=== PATIENT | male | born 1960 | race Caucasian/White ===

== ENCOUNTER → 2020-01-16 | Outpatient (CLI) | payer OTHER, SELFPAY ==
--- NOTE | 2020-01-16 12:00 | EKG12_ITS ---
Test Reason : PRE OP Blood Pressure : / mmHG Vent. Rate : 084 BPM Atrial Rate : 084 BPM P-R Int : 150 ms QRS Dur : 090 ms QT Int : 340 ms P-R-T Axes : 041 009 036 degrees QTc Int : 401 ms Normal sinus rhythm Normal ECG Confirmed by JUAN CARLOS ESPINOZA, KARELY ([id number]), movie editor JAYSHREE CHRISTIAN ([id number]) on 01/17/2020 1:09:52 PM Referred By: Markos Villasenor Confirmed By:KARELY RANGEL MD
== END | disposition home or self-care (01) ==
LOC: PSN 12:01
PROVIDERS: Referring Provider Urology; Visit Provider Urology
DX: Z01.812 Encounter for preprocedural laboratory examination (principal); I10 Essential (primary) hypertension; Z11.59 Encounter for screening for other viral diseases
CPT/HCPCS: 87635; 93005; C9803; U0003

== ENCOUNTER → 2020-01-24 | Outpatient (CLI) | payer OTHER, SELFPAY ==
--- NOTE | 2020-01-24 14:00 | RAD_ITS ---
STUDY: X-RAY - ABDOMEN/PELVIS REASON FOR EXAM: Male, 59 years old. Hx of kidney stone on the left. Recent surgery with stent placement. TECHNIQUE: Frontal view of the abdomen COMPARISON: None. FINDINGS: Normal visualized lung bases. There are multiple left renal stones with stent in place. There are pelvic calcifications, possibly phleboliths versus distal ureteral stone. There is a calcification in the right upper quadrant, unclear if this is within bowel, gallstone or renal. There is an unremarkable bowel gas pattern. There is no demonstrated free abdominal air. The visualized liver, spleen and kidneys are grossly normal in size and morphology. Normal soft tissue structures. Normal visualized osseous structures. RAD/Abdomen Single View IMPRESSION: Left ureteral stent, left renal calculi. Refer to CT for definitive characterization of urinary calculi. No acute abdominal findings. Electronically Signed: Lorrie Lew, at 13:13 EDT Tel , Service support ,
== END | disposition home or self-care (01) ==
LOC: RAD 13:46
PROVIDERS: Referring Provider Nurse Practitioner Adult Health; Visit Provider Nurse Practitioner Adult Health
DX: N20.0 Calculus of kidney (principal)
CPT/HCPCS: 74018

== ENCOUNTER 2020-03-16 11:20 | Day surgery (SDC) | payer OTHER, SELFPAY ==
--- NOTE | 2020-03-16 11:25 | RAD_ITS ---
STUDY: X-RAY - ABDOMEN/PELVIS REASON FOR EXAM: Male, 59 years old. PRE OP ESWL FOR BILATERAL KIDNEY STONES TECHNIQUE: Single AP view of the abdomen / pelvis. COMPARISON: None. FINDINGS: Comparison is made with prior study dated 01/24/2020. There is a moderate amount of colonic fecal material. Stable appearance of the bilateral intrarenal calculi. The previously seen left double-J stent catheter has been removed. Normal soft tissue structures. Normal visualized osseous structures. RAD/Abdomen Single View IMPRESSION: Stable bilateral intrarenal calculi. Electronically Signed: Arnulfo Zurita, at 12:22 EST , Service support ,
[2020-03-16 11:58] VITALS: BP 162/90; PULSE 88; RESP 16; TEMP 37.5; O2SAT 95; BMI 26.8
--- NOTE | 2020-03-16 12:03 | PCM.HP.STD ---
Problem List (1) Left renal stone Status: Acute History of Present Illness Date of Admission: 03/16/20 Chief Complaint: Multiple left kidney stones The patient is a 59 year old male with multiple left kidney stones also has some stones in the right side around the start of the left side first and will do shockwave lithotripsy and stent placement on the left side. Past Medical History Allergies No Known Allergies Allergy (Verified 03/08/20 10:17) Home Medications: Ambulatory Orders Medication Instructions Recorded Fish Oil/Dha/Epa [Fish Oil 1,200 2 ea PO BID 03/08/20 mg Fish Oil] Levothyroxine [Synthroid] 75 mcg PO DAILY 03/08/20 Losartan Potassium [Cozaar] 50 mg PO DAILY 03/08/20 Multivitamin with Minerals 1 ea PO DAILY 03/08/20 [Multiple Vitamin] Niacin 500 mg PO BID 03/08/20 Red Yeast Rice 1,200 mg PO BID 03/08/20 Surgical History: no surgical history Smoking Status: Never smoker Tobacco Use: Non-smoker Review of Systems Constitutional: Denies: Chills, Fever, Weight Change HEENT: Denies: Head Aches, Sinus Congestion, Sinus Drainage Cardiovascular: Denies: Chest Pain, Palpitations Respiratory: Denies: Cough, Shortness of breath at rest, Sputum production Gastrointestinal: Denies: Abdominal Pain, Nausea, Vomiting Genitourinary: Denies: Dysuria Musculoskeletal: Denies: Joint Pain, Joint Tenderness Skin: Denies: Rash, Wounds Neurological: Denies: Numbness, Tingling, Focal weakness Psychiatric: Denies: Anxiety, Depression, Homicidal Ideations, Suicidal Ideations Hematologic/ Lymphatic: Denies: Easy Bruising, Easy Bleeding VTE Information - Inpt Only VTE Present on Admission: No VTE Mechan Device Prophylaxis: SCD's - Physical Exam General: Alert, Oriented x3, Cooperative HEENT: Atraumatic, PERRLA, EOMI, Normocephalic Neck: Supple, No JVD, Negative Carotid Bruits Lungs: Clear to auscultation, Normal air movement Cardiovascular: Regular rate, No murmurs Abdomen: Bowel Sounds Present, Soft, Non Tender Extremities: No edema, Capillary Refill Less than 3 Seconds Skin: No rashes, No breakdown Musculoskeletal: No Tenderness to Palpation of Joints or Extremities Neurological: Cranial nerves II-XII grossly intact Psych/Mental Status: Normal Affect, Appropriate Microbiology Past 72 Hours 12/10/20 10:20 Interface Orders SARS-CoV-2 Antigen (Rapid) - Final Current Medications Cefazolin Sodium 2 gm/ Sodium (Chloride) 110 mls @ 150 mls/hr IV PREOP ONE Stop: 03/16/20 15:38 Assessment/Plan All Active Problems Left renal stone (Acute) Plan to proceed with left extracorporeal shockwave lithotripsy and left stent placement.
--- NOTE | 2020-03-16 12:07 | DCINST_ITS ---
Discharge Diet: Light diet - advance as tolerated, Soft diet Discharge Activity: Return to Normal Activity Call your doctor if your incision/area has: Sudden Increased Bleeding Call your doctor if you observe: Fever of 101 or Higher Suture Line Care: Avoid Pulling/Pushing, Avoid Pinching/Bending Allergies/Adverse Reactions: Allergies No Known Allergies Allergy (Verified 03/08/20 10:17) Medications to take at Discharge Fish Oil/Dha/Epa [Fish Oil 1,200 mg Fish Oil] 2 ea PO BID 03/08/20 Levothyroxine [Synthroid] 75 mcg PO DAILY 03/08/20 Losartan Potassium [Cozaar] 50 mg PO DAILY 03/08/20 Multivitamin with Minerals [Multiple Vitamin] 1 ea PO DAILY 03/08/20 Niacin 500 mg PO BID 03/08/20 Red Yeast Rice 1,200 mg PO BID 03/08/20 Ciprofloxacin [Cipro] 500 mg PO BID #6 tab 03/16/20 Hydrocodone/Acetaminophen [[place] 5-325 Tablet] 1 each PO Q6H PRN PRN 7 Days #20 tablet 03/16/20 The following prescriptions were given: Ciprofloxacin [Cipro] 500 mg PO BID #6 tab Transmission Status: Pending to [facility] Hydrocodone/Acetaminophen [[place] 5-325 Tablet] 1 each PO Q6H PRN PRN 7 Days #20 tablet PRN Reason: Pain 1-10 Or Fever Transmission Status: Sent to [facility] Orders to be completed after discharge: Abdomen Single View [RAD] Time Frame: 03/16/20, Facility: [facility] [place], Location: [facility] Primary Care Physician: Pablo Willett MD [Primary Care Provider] - Test Results: Test results from this visit will be discussed in further detail at your follow- up appointment, if applicable. Please Follow Up With: Markos Villasenor MD - [phone] When: please call to make an appointment.
[2020-03-16] MEDS: Lactated Ringers 1,000 ML 75 ML IV (12:10)
--- NOTE | 2020-03-16 14:39 | PCM.OPRPT ---
Problem List (1) Left renal stone Status: Acute Report of Operation Date of Procedure: 03/16/20 Pre-Operative Diagnosis: Multiple left renal calculi Post-Operative Diagnosis: Same Surgery/Procedure Performed:: Left extracorporeal shockwave lithotripsy Description of Surgical Findings:: 59-year-old male with multiple stones in the left kidney today we took the patient back to surgery he underwent general anesthesia and was placed supine on the lithotripter table we then placed the legs in dorsolithotomy position. Went in the bladder with a 21 Bangladeshi rigid cystourethroscope. Cannulated the left ureteral orifice with a Glidewire and advanced a wire up into the kidney. But the string on the stent for extraction later. We then proceeded we found some stones in the upper pole the kidney in the lower pole the left kidney. 1500 shockwaves delivered to the stones in the upper pole the kidney and another 1500 shockwaves at the stone the lower pole the kidney there was partial fragmentation of both stones but was not a complete treatment and stones were fairly hard at the end of the femur could still see multiple fragments he may need more treatments. Patient anesthetic was reversed taken back to PACU good condition we will see him next week with a KUB probably remove the stent and then we may consider further treatments for the stones. Type of Anesthesia:: General Drains: stent - Admit VTE Documentation VTE Present on Admission: No VTE Mechan Device Prophylaxis: SCD's
[2020-03-16 14:43] VITALS: BP 135/92; BP 162/90; PULSE 77; RESP 18; TEMP 36.3; O2SAT 94
[2020-03-16 14:45] VITALS: BP 136/97; BP 162/90; PULSE 77; RESP 18; O2SAT 94
[2020-03-16] MEDS: Ketorolac 15 MG/ML Vial IV (14:51)
[2020-03-16 15:02] VITALS: BP 123/91; BP 162/90; PULSE 77; RESP 18; TEMP 36.8; O2SAT 96
[2020-03-16 16:05] VITALS: BP 147/94; BP 162/90; PULSE 68; RESP 16; TEMP 36.1; O2SAT 100
== END 2020-03-16 16:11 | disposition home or self-care (01) ==
LOC: SDC 11:20 → AC 11:32
PROVIDERS: Referring Provider Urology; Visit Provider Urology
PROC: (CPT 50590; principal; 2020-03-16 13:35)
DX: N20.0 Calculus of kidney (principal); I10 Essential (primary) hypertension; E06.9 Thyroiditis, unspecified; Z87.442 Personal history of urinary calculi; Z20.828 Contact with and (suspected) exposure to other viral communicable diseases; Z79.899 Other long term (current) drug therapy
CPT/HCPCS: 00873; 50590; 52332; 74018; 87426; C9803; J7120; J2405

== ENCOUNTER → 2020-03-20 10:19 | Outpatient (CLI) | payer OTHER, SELFPAY ==
[2020-03-16 11:58] VITALS: BMI 26.8
--- NOTE | 2020-03-20 10:20 | RAD_ITS ---
STUDY: X-RAY - ABDOMEN/PELVIS REASON FOR EXAM: Male, 59 years old. History of kidney stones. Surgery on Thursday. TECHNIQUE: Two AP supine views of the abdomen and pelvis. COMPARISON: 03/16/2020. FINDINGS: Normal visualized lung bases. There is an unremarkable bowel gas pattern. There is no demonstrated free abdominal air. The visualized liver, spleen and kidneys are grossly normal in size and morphology. There is a left ureteral stent not present on the previous study. Again seen are stable bilateral renal calculi. Normal soft tissue structures. There are no significant osseous changes. RAD/Abdomen Single View IMPRESSION: 1. Left ureteral stent. There is no other interval change when compared to study of 4 days earlier. Electronically Signed: Heriberto Jarrett DO at 17:26 EST Tel [phone], Service support ,
== END ==
PROVIDERS: Referring Provider Nurse Practitioner Adult Health; Visit Provider Nurse Practitioner Adult Health
DX: N20.0 Calculus of kidney (principal)
CPT/HCPCS: 74018

== ENCOUNTER → 2020-07-19 09:48 | Outpatient (CLI) | payer OTHER, SELFPAY ==
--- NOTE | 2020-07-19 09:53 | RAD_ITS ---
STUDY: X-RAY - ABDOMEN/PELVIS REASON FOR EXAM: Male, 60 years old. KIDNEY STONE TECHNIQUE: Single AP view of the abdomen / pelvis. COMPARISON: 03/20/2020 FINDINGS: Normal visualized lung bases. There is an unremarkable bowel gas pattern. 10 mm calcific opacity overlying the right kidney consistent with a right renal stone. Multiple smaller calcific opacities overlying the left kidney consistent with left renal stones. No definite ureteral stone. Normal soft tissue structures. Normal visualized osseous structures. RAD/Abdomen Single View IMPRESSION: Bilateral renal stones. Electronically Signed: Pablo Parks MD at 10:28 EDT Tel , Service support ,
== END ==
PROVIDERS: PCP Nurse Practitioner Family; Referring Provider Urology; Visit Provider Urology
DX: N20.0 Calculus of kidney (principal)
CPT/HCPCS: 74018

== ENCOUNTER 2021-07-11 09:53 | Outpatient (CLI) | payer OTHER, SELFPAY ==
--- NOTE | 2021-07-11 09:56 | RAD_ITS ---
STUDY: X-RAY - ABDOMEN/PELVIS REASON FOR EXAM: Male, 61 years old. KIDNEY STONE TECHNIQUE: Single AP view of the abdomen / pelvis. COMPARISON: Comparison is made with prior study 07/19/2020. FINDINGS: Normal visualized lung bases. There is a moderate amount of colonic fecal material. There is a 1.1 cm calculus in the upper pole of the right kidney. There is a 6.8 mm calculus in the midpole region of the right kidney. Stable calcifications in the left kidney. There are calcified phleboliths in the pelvis. Normal visualized osseous structures. RAD/Abdomen Single View IMPRESSION: Bilateral intrarenal calculi. The largest calculus measures 1.1 cm and is in the upper pole of the right kidney. Electronically Signed: Arnulfo Zurita MD at 11:04 EDT ,
== END 2021-07-11 23:59 | disposition home or self-care (01) ==
LOC: RAD 09:55
PROVIDERS: PCP Nurse Practitioner Family; Referring Provider Urology; Visit Provider Urology
DX: N20.0 Calculus of kidney (principal)
CPT/HCPCS: 74018

== ENCOUNTER → 2022-07-14 | Outpatient (CLI) | payer OTHER, SELFPAY ==
--- NOTE | 2022-07-14 09:47 | RAD_ITS ---
STUDY: X-RAY - ABDOMEN/PELVIS REASON FOR EXAM: Male, 62 years old. Follow-up of kidney stones. TECHNIQUE: Single AP view of the abdomen / pelvis and T2 images. COMPARISON: July 11, 2021. FINDINGS: Normal visualized lung bases. There is an unremarkable bowel gas pattern. There is no demonstrated free abdominal air. Stable large calcifications projected over the right mid kidney measuring approximately 13 mm in diameter. Multiple small kidney stones on the left unchanged. Phleboliths. Normal visualized osseous structures. RAD/Abdomen Single View IMPRESSION: Stable bilateral kidney stones as described. Electronically Signed: Donato Botello, at 12:53 EDT ,
[2022-07-14 11:52] LABS: PSA,Total - Annual Screen 1.22 ng/mL (0.00-4.00)
== END | disposition home or self-care (01) ==
PROVIDERS: PCP Nurse Practitioner Family; Referring Provider Urology; Visit Provider Urology
DX: N20.0 Calculus of kidney (principal); Z12.5 Encounter for screening for malignant neoplasm of prostate
CPT/HCPCS: 36415; 74018; 84153; G0103

== ENCOUNTER → 2023-04-30 | Outpatient (CLI) | payer OTHER, SELFPAY ==
--- NOTE | 2023-04-30 14:10 | RAD_ITS ---
INDICATION: CALCULUS OF KIDNEY EXAMINATION/TECHNIQUE: X-RAY - XR Abdomen 1 View COMPARISON: Prior study dated: 07/14/2022. FINDINGS: BOWEL GAS PATTERN: Non-obstructive. No bowel or stomach distention. FREE AIR: Not assessed on a single supine view. ORGANOMEGALY: Not seen. CALCIFICATIONS: Calcifications are again seen overlying the right kidney. One of the calcifications is now more medially than the previous exam could be in the renal pelvis. Multiple small calcifications are again seen overlying the left kidney. LOWER CHEST: No acute pathology. BONES AND SOFT TISSUES: No acute pathology. RAD/Abdomen Single View IMPRESSION: Bilateral renal calcifications/stones as described above. Electronically Signed: Alexandre White MD at 14:42 EST ,
--- OUTSIDE RECORDS SUMMARY | 2023-04-30 14:35 | XMS RPT_ITS | CCD ---
Author Name Unknown Address [address] [place] [address] Organization [facility] Care Team Providers Care [facility] Care And Home Health Aides Teacher Name Role Phone EM Romo CNP, FABIENNE Ware Primary Care Phys ician EM Romo CNP, FABIENNE Ware Attending U amber Romo CNP, FABIENNE Ware Primary Care U eliotailmilton Romo CNP, FABIENNE Ware Attending U eliotailmilton Romo CNP, FABIENNE Ware Primary Care U navailable Medications Current Medications Medication Drug Class(es) Dates Sig (Normalized) Sig (Original) budesonide 0.032 mg/actuat metered dose nasal spray (3 sources) Corticosteroid Start: 12-24-2018 Rhinocort Allergy 32 mcg/inh nasal spray Nasal, qDay, 0 Refill(s) Start Date: 12/24/18 Status: Ordered levothyroxine sodium 0.075 mg oral tablet (3 sources) l-Thyroxine Start: 06-26-2022 levothyroxine 75 mcg (0.075 mg) oral tablet Dose : 75 mcg = 1 tab(s), Oral, qDay, # 90 tab(s), 1 Refill(s), Pharmacy: [id number], Hypothyroidism, 188, cm, 06/26/22 15:51:00 EDT, Height Start Date: 06/26/22 Status: Ordered Completed/Discontinued Medications Medication Drug Class(es) Dates Sig (Normalized) Sig (Original) Albuterol (1 source) beta2-Adrenergic Agonist Start: 01-04-2021 End: 02-03-2021 take 1 puff(s) by inhalation every four hours ProAir HFA MDI (90 mcg/inh) inhalation aerosol 1 puff(s), Inhalation, q4h, May change to different brand or generic formulation if patient's formulary does not cover ProAir. Okay to change to Proventil or Ventolin., # 6.7 gram(s), 0 Refill(s), Pharmacy: [id number], COVID-19, 188, cm, 12/06... Start Date: 01/04/21 Stop Date: 02/03/21 Status: Ordered atorvastatin 10 mg oral tablet (3 sources) HMG-CoA Reductase Inhibitor Start: 12-14-2020 End: 06-17-2022 atorvastatin 10 mg oral tablet Dose : 10 mg = 1 tab(s), Oral, qDay, # 90 tab(s), 1 Refill(s), Pharmacy: [id number], Hyperlipidemia LDL goal Start Date: 12/19/21 Stop Date: 06/17/22 Status: Ordered Problems Active Problems Problem Classification Problem Date Documented Da te Episodic/Chronic Calculus of urinary tract (4 sources) Kidney stone 06-29-2020 Episodic Chronic kidney disease (4 sources) Chronic kidney disease stage 3 12-30-2019 Chronic Chronic kidney disease (2 sources) Chronic kidney disease; Translations: [Chronic kidney disease, stage 3 unspecified] Onset: 06-19-2022 Diabetes mellitus without complication (6 sources) Impaired fasting glycemia; Translations: [Impaired fasting glucose] Onset: 12-12-2021 12-23-2018 Episodic Disorders of lipid metabolism (12 sources) Hyperlipidemia; Translations: [Hypertriglyceridem ia] Onset: 06-19-2022 12-24-2018 Chronic Essential hypertension (6 sources) Hypertensive disorder; Translations: [Essential (primary) hypertension] Onset: 06-19-2022 12-23-2018 Chronic Other infections; including parasitic (4 sources) Erythema chronica migrans 09-27-2020 Episodic Other male genital disorders (4 sources) Impotence of organic origin 12-23-2018 Chronic Other nutritional; endocrine; and metabolic disorders (4 sources) High density lipoprotein deficiency 12-23-2018 Chronic Otitis media and related conditions (4 sources) Dysfunction of eustachian tube 12-23-2018 Episodic Residual codes; unclassified (4 sources) Increased body mass index 06-24-2019 Episodic Thyroid disorders (6 sources) Hypothyroidism; Translations: [Hypothyroidism, unspecified] Onset: 06-19-2022 12-24-2018 Chronic Unclassified (4 sources) History of SARS-CoV-2 01-04-2021 Unclassified (4 sources) Patient encounter status 12-24-2018 Unclassified (2 sources) Non-smoker 12-19-2021 Past or Other Problems Problem Classification Problem Date Documented Da te Episodic/Chronic Other nutritional; endocrine; and metabolic disorders (2 sources) Other symptoms and signs concerning food and fluid intake; Translations: [Other symptoms and signs concerning food and fluid intake] Onset: 12-12-2021 Episodic Other screening for suspected conditions (not mental disorders or infectious disease) (2 sources) Encounter for screening for malignant neoplasm of prostate; Translations: [Encounter for screening for malignant neoplasm of prostate] Onset: 12-12-2021 Episodic Results Test Name Value Interpretation Reference Range Facil ity Encounters Encounter Date Encounter Type Care Provider Facility Start: 12-18-2022 End: 12-22-2022 Outreach Lab FABIENNE Ware EM WELDER FITTER APPRENTICE - TOOL MACHINE SETUP OPERATOR [facility] Start: 06-19-2022 End: 06-24-2022 ambulatory FABIENNE Ware EM WELDER FITTER APPRENTICE - TOOL MACHINE SETUP OPERATOR Facility:B Start: 06-19-2022 End: 06-23-2022 Outreach Lab FABIENNE HIGHTOWERPKINS WELDER FITTER APPRENTICE - TOOL MACHINE SETUP OPERATOR [facility] Start: 12-12-2021 End: 12-17-2021 ambulatory FABIENNE Ware EM WELDER FITTER APPRENTICE - TOOL MACHINE SETUP OPERATOR Facility:[facility] Start: 12-12-2021 End: 12-16-2021 Outreach Lab FABIENNE Ware EM WELDER FITTER APPRENTICE - TOOL MACHINE SETUP OPERATOR [facility] Start: 06-13-2021 End: 06-17-2021 Outreach Lab FABIENNE Ware EM WELDER FITTER APPRENTICE - TOOL MACHINE SETUP OPERATOR [facility] Immunizations Immunization Date Immunization Notes Care Provider Fa cili 08-27-2020 tetanus toxoid, redu ankush diphtheria toxoid, and acellular pertussis vaccine, adsorbed; Translations: [Boostrix (Tdap)] FABIENNE HIGHTOWERPKINS WELDER FITTER APPRENTICE - TOOL MACHINE SETUP OPERATOR [facility] 01-18-2015 influenza virus vaccine, unspecified formulation FABIENNE STRICKLAND WELDER FITTER APPRENTICE - TOOL MACHINE SETUP OPERATOR [facility] Payers Date Payer Category Payer Unknown [id number] 1960 Unknown [id number] 1960 Unknown [id number] Social History Date Type Detail Facility Start: 12-23-2018 Never smoked tobacco (f inding) [facility] Evaluation + Plan note Laboratory Note Date & Type Note Facility Evaluation + Plan note Future Appointments Appointment Date:06/21/2021 10:20:00 AM Scheduled Provider:FABIENNE STRICKLAND APRN, CNP Location:[facility] Appointment Type:PC OV Follow Up Diagnostic Tests PendingRenin, Plasma 06/13/21 Future Scheduled TestsPathology Tissue Request 12/25/20Pathology Tissue Request 12/25/20Pathology Tissue Request 12/25/20Pathology Tissue Request 12/25/20Pathology Tissue Request 12/25/20 [facility] Evaluation + Plan note Laboratory Note Date & Type Note Facility Evaluation + Plan note Future Appointments Appointment Date:12/19/2021 10:40:00 AM Scheduled Provider:FABIENNE STRICKLAND APRN, CNP Location:[facility] Appointment Type:PC OV Follow Up Future Scheduled TestsPathology Tissue Request 12/25/20Pathology Tissue Request 12/25/20Pathology Tissue Request 12/25/20Pathology Tissue Request 12/25/20Pathology Tissue Request 12/25/20Prostate Specific Antigen 12/22/21Microalbumin Level Urine 12/22/21 [facility] Evaluation + Plan note Laboratory Note Date & Type Note Facility Evaluation + Plan note Future Appointments Appointment Date:06/26/2022 03:40:00 PM Scheduled Provider:FABIENNE STRICKLAND APRN, CNP Location:[facility] Appointment Type:PC OV Follow Up Future Scheduled TestsProstate Specific Antigen 18/22Microalbumin Level Urine 3/15/23Microalbumin Level Urine 22 [facility] Evaluation + Plan note Laboratory Note Date & Type Note Facility Evaluation + Plan note Future Appointments Appointment Date:12/26/2022 10:20:00 AM Scheduled Provider:FABIENNE STRICKLAND APRN, CNP Location:[facility] Appointment Type:PC OV Follow Up Future Scheduled TestsProstate Specific Antigen 12/22/21Albumin/Creatinine Ratio, Random Urine 12/27/Microalbumin Level Urine 3/15/23Microalbumin Level Urine 22 [facility] Hospital course Narrative Note Date & Type Note Facility Hospital course Narrative No data available for this section [facility] Hospital Discharge instructions Note Date & Type Note Facility Hospital Discharge instructions No data available for this section [facility] Progress note Note Date & Type Note Facility Progress note No data available for this section [facility] Summary Purpose Family History No Family History Records Found No data available for this section Advance Directives No Advanced Directives Records Found Additional Source Comments Care Team (unrecognized sect ion and content) Care Team Personnel Name: FABIENNE STRICKLAND APRN, CNP Position: P4 Advanced Practice Nurse Med Service: Employed Provider Member Role: Primary Care Physician Address: Address: [address], [place] [address] Care Team Related Persons Name: MINERVA VEGA Patient Care team informatio n (unrecognized section and content) Care Team Personnel Name: FABIENNE STRICKLAND APRN, CNP Position: P4 Advanced Salvage Mend Worker Member Role: Primary Care Physician Address: Address: [address] [place] [address]- [place] Care Team Related Persons Name: MINERVA VEGA Care Team Personnel Name: EM FABIENNE Jeanie MONTERO - TOOL MACHINE SETUP OPERATOR Position: P4 Advanced Salvage Mend Worker Member Role: Primary Care Physician Address: Address: [address] [place] [id number]- [place] Care Team Related Persons Name: MINERVA VEGA (unrecognized sect ion and content) No Status Records Found INFORMATION SOURCE (unrecogn ized section and content) FOR RECORDS PERTAINING TO PATIENTS WHO ARE OR HAVE BEEN ENROLLED IN A CHEMICAL DEPENDENCY/SUBSTANCEABUSE PROGRAM, SOME INFORMATION MAY BE OMITTED. This clinical summary was aggregated from multiple sources. Caution should be exercised in using it in the provision of clinical care. This summary normalizes information from multiple sources, and as a consequence, information in this document may materially change the coding, format and clinical context of patient data. In addition, data may be omitted in some cases. CLINICAL DECISIONS SHOULD BE BASED ON THE PRIMARY CLINICAL RECORDS. [facility] [employer] provides no warranty or guarantee of the accuracy or completeness of information in this document.
== END | disposition home or self-care (01) ==
LOC: LAB 14:04 → RAD 14:06
PROVIDERS: PCP Nurse Practitioner Family; Referring Provider Urology; Visit Provider Urology
DX: N20.0 Calculus of kidney (principal)
CPT/HCPCS: 74018

== ENCOUNTER 2023-05-08 13:21 | Day surgery (SDC) | payer OTHER, SELFPAY ==
[2023-05-08] VITALS (8 sets, daily range): BP systolic 143–166; BP diastolic 89–109; PULSE 75–100; RESP 16–18; TEMP 36.6–37.2; O2SAT 94–97; BMI 27.7
--- NOTE | 2023-05-08 13:30 | RAD_ITS ---
STUDY: X-RAY - ABDOMEN/PELVIS REASON FOR EXAM: Male, 62 years old. PRE OP TECHNIQUE: Single AP view of the abdomen / pelvis. COMPARISON: Comparison is made with prior study dated October 29, 2023. FINDINGS: Normal visualized lung bases. There is a moderate amount of colonic fecal material. Stable bilateral intrarenal calculi are more prominent in the mid and lower pole of the right kidney. Rounded calcifications are seen in the left hemipelvis most likely representing phleboliths. Normal soft tissue structures. There are degenerative changes of the visualized lumbar spine. RAD/Abdomen Single View IMPRESSION: Stable bilateral intrarenal calculi more prominent on the right side. Electronically Signed: Arnulfo Zurita MD at 14:14 EST ,
[2023-05-08] MEDS: Lactated Ringers 1,000 ML 15 ML IV (14:04)
[2023-05-08] MEDS: Cefazolin 2 GM in 0.9% Normal Saline (100mL Bag) 100 ML IV (14:32)
--- NOTE | 2023-05-08 14:37 | HP.PCM_ITS ---
HPI - General General Date of Service: 05/08/23 Chief Complaint: Multiple large right kidney stones HPI Narrative MICHELLE VEGA, is a 62 M who presents right extracorporeal shockwave lithotripsy and stent placement patient understands possible may need more than 1 procedure he does have a significant stone burden [facility] Medical History (Updated 05/05/23 @ 08:07 by Kandy Gutierrez) Anxiety Arthritis Cancer High cholesterol History of kidney stones History of renal disease Hypertension Non-smoker Sleep apnea Thyroid disease Wears glasses Home Medications levothyroxine 75 mcg tablet 75 mcg PO DAILY 03/08/20 [History Last Taken 05/08/23] losartan 50 mg tablet 50 mg PO DAILY 03/08/20 [History Last Taken 05/08/23] multivitamin with minerals 1 ea PO DAILY 03/08/20 [History Last Taken Unknown] alprazolam 0.5 mg tablet (Xanax) 0.5 mg PO DAILY PRN anxiety 05/05/23 [History Last Taken 05/08/23] atorvastatin 10 mg tablet 10 mg PO QHS 05/05/23 [History Last Taken Unknown] budesonide 32 mcg/actuation nasal spray,aerosol 32 mcg intranasal DAILY PRN congestion 05/05/23 [History Last Taken Unknown] olopatadine 0.2 % eye drops (Eye Allergy Itch Relief) 1 drp EACH EYE DAILY 05/05/23 [History Last Taken Unknown] ciprofloxacin HCl 500 mg tablet (Cipro) 500 mg PO BID #14 tabs 05/08/23 [Rx Last Taken Unknown] oxycodone 5 mg tablet 5 mg PO Q6H PRN pain 7 days #10 tabs 05/08/23 [Rx Last Taken Unknown] phenazopyridine 100 mg tablet (Pyridium) 100 mg PO TID #14 tabs 05/08/23 [Rx Last Taken Unknown] tamsulosin 0.4 mg capsule (Flomax) 0.4 mg PO DAILY #10 caps 05/08/23 [Rx Last Taken Unknown] Allergy/AdvReac Type Severity Reaction Status Date / Time No Known Allergies Allergy Verified 05/08/23 14:00 Surgical History (Updated 05/05/23 @ 08:07 by Kandy Gutierrez) History of colonoscopy History of sinus surgery History of wisdom tooth extraction Social History Smoking Status: Never smoker Vital Signs Vital Signs Vital Signs: 05/08/23 14:01 05/08/23 14:01 Temperature 97.8 F Temperature Source Temporal Pulse Rate 100 Respiratory Rate 16 Respiratory Pattern Normal Blood Pressure 157/98 H Blood Pressure Mean 117 Blood Pressure Source Monitor Blood Pressure Position Semi-Fowlers Blood Pressure Location Right Arm Pulse Ox 97 Oxygen Delivery Method Room Air Weight Weight: 95.4 kg Body Mass Index (BMI) 27.7 Results Imaging Radiology Impression KUB X-Ray 05/08/23 13:30 IMPRESSION: Stable bilateral intrarenal calculi more prominent on the right side. Electronically Signed: Arnulfo Zurita MD at 14:14 EST ,
--- NOTE | 2023-05-08 14:37 | DCINST_ITS ---
Discharge Instructions Diet Discharge Diet: No restrictions Activity Discharge Activity: Return to Normal Activity and May Not Drive (while taking narcotic pain medications.) Dressing / Incision Call your doctor if you observe: Fever of 101 or Higher Follow Up Care Please Follow Up With: Markos Villasenor MD When: Call [phone] for an appointment Test Results: Test results from this visit will be discussed in further detail at your follow- up appointment, if applicable. Discharge Plan Admission Primary Reason for Your Visit: right kidney stone Attending Provider: Markos Villasenor Primary Care Provider: Pablo Mansfield NP Discharge Orders/Prescriptions Prescriptions: New ciprofloxacin HCl [Cipro] 500 mg tablet 500 mg PO BID Qty: 14 0RF tamsulosin [Flomax] 0.4 mg capsule 0.4 mg PO DAILY Qty: 10 0RF oxycodone 5 mg tablet 5 mg PO Q6H PRN (Reason: pain) 7 Days Qty: 10 0RF phenazopyridine [Pyridium] 100 mg tablet 100 mg PO TID Qty: 14 0RF Continued losartan 50 MG tablet 50 mg PO DAILY levothyroxine 75 MCG tablet 75 mcg PO DAILY multivitamin with minerals 1 EACH tablet 1 ea PO DAILY atorvastatin 10 mg tablet 10 mg PO QHS budesonide 32 mcg/actuation aerosol 32 mcg intranasal DAILY PRN (Reason: congestion) olopatadine [Eye Allergy Itch Relief] 0.2 % drops 1 drp EACH EYE DAILY alprazolam [Xanax] 0.5 mg tablet 0.5 mg PO DAILY PRN (Reason: anxiety) Referrals / Follow Up: Markos Villasenor MD [Med Staff - Active Staff] - Pablo Mansfield NP, FINISHING OPERATOR-C [Primary Care Provider] - Disposition Disposition (needs filled in before D/C Order can be placed): Home, Self Care
--- NOTE | 2023-05-08 15:35 | OP.PCM_ITS ---
Report of Operation Date of Procedure: 05/08/23 Pre-Operative Diagnosis: Right large kidney stones Post-Operative Diagnosis: The same Surgery/Procedure Performed:: Cystoscopy and right stent placement and extracorporeal shockwave lithotripsy Description of Surgical Findings:: Patient presents to the hospital for treatment of a kidney stone with shockwave lithotripsy. In the preoperative area and x-ray was done to confirm the location of the stone. The x-ray was reviewed and the stone location was reviewed. In the preoperative setting I spoke with the patient regarding the treatment of the stone how the treatment would be conducted and the expectations after surgery. The patient understands there is a risk of bleeding and infection. Also discussed the very rare risk of hematoma or damage to the kidney. We also discussed the risk that the shockwave machine will fail to break the stone adequately and that the patient may need other surgical procedures. We also discussed the possibility that the patient may need a stent after the procedure. After reviewing the procedure with the patient, the patient is signed the consent form all the patient's questions were addressed and was taken back to the operating room for treatment of a kidney stone. The urethra and genitals were prepped and draped in usual sterile fashion. Using a 21 Macedonian rigid cystourethroscope the entire length of the urethra was normal then went into the bladder. Identified the trigone the left and right ureteral orifice. I then cannulated the Right ureteral orifice and advanced a wire up into the kidney. I then backloaded a 5 Macedonian open ended catheter over the wire and injected contrast to delineate the anatomy. After the retrograde was performed I then used fluoroscopic images and guidance to advanced a wire up into the kidney and over the 0.038 glidewire I advanced a 6 Macedonian by 26 cm double pigtail stent. I then pulled the 0.038 Glidewire off and the stent coiled in the kidney bladder good position. The bladder was then drained. We confirmed the position of the stent by fluoroscopy. I identified the side of the treatment and the patient side of treatment had been marked by my initials. The patient underwent general anesthetic and was placed supine on the lithotripter table. We then used fluoroscopy to identify the stone on the Right UPJ and kidney. We then positioned the patient under the lithotripter and we used triangulation technique to identify the location of the stone and then we made sure that the stone was engaged in the F2 focal point of F2 Donier lithoprior machine. Once the patient was positioned appropriately and the stone was identified and placed in the F2 focal point of the lithotripter machine we then proceeded with shockwave lithotripsy. In the beginning the shockwave was delivered at a rate of 90 shocks per minute, we monitor the EKG for any ectopy. The power was slowly increased to 5 kV and subsequently at the 7 kV. We then proceeded with the treatment we move the therapy had around during the treatment to make sure the stone stayed in the F2 focal point during the entire treatment and after 3000 shockwaves were delivered to the stone under fluoroscopic guidance the treatment was completed. The patient was given instructions to call the office to make an a follow-up appointment with an xray to evaluate the success of the treatment, pateint understands that its possible the stones may need another procedure.At this point the patient's anesthetic was reversed patient was extubated and taken back to the PACU in stable condition. Surgeon: Markos Villasenor Type of Anesthesia: General Drains: right stent Admit VTE Documentation VTE Present on Admission: No VTE Mechan Device Prophylaxis: SCD's VTE Pharm Prophylaxis ordered?: No
[2023-05-08] MEDS: Ketorolac 15 MG/ML Vial IV (16:04)
[2023-05-08] MEDS: Lactated Ringers 1,000 ML 100 ML IV (16:11)
[2023-05-08] MEDS: Acetaminophen 325 MG Tablet 650 MG PO (17:05)
== END 2023-05-08 17:37 | disposition home or self-care (01) ==
PROVIDERS: PCP Nurse Practitioner Family; Referring Provider Urology; Visit Provider Urology
PROC: (CPT 50590; principal; 2023-05-08 13:55)
DX: N20.0 Calculus of kidney (principal); I10 Essential (primary) hypertension; E78.00 Pure hypercholesterolemia, unspecified; E03.9 Hypothyroidism, unspecified; Z79.890 Hormone replacement therapy; Z79.899 Other long term (current) drug therapy
CPT/HCPCS: 52332; 00873; 74018; J7120; C1769; C2617; J2405

== ENCOUNTER → 2023-06-03 | Outpatient (CLI) | payer OTHER, SELFPAY | END | disposition home or self-care (01) | LOC: LABSPEC 15:59 | PROVIDERS: PCP Nurse Practitioner Family; Referring Provider Otolaryngology; Visit Provider Otolaryngology | DX: J32.9 Chronic sinusitis, unspecified (principal) | CPT/HCPCS: 87070; 87077; 87186; 87205 ==

== ENCOUNTER → 2023-07-02 | Outpatient (CLI) | payer OTHER, SELFPAY ==
--- NOTE | 2023-07-02 07:10 | CT_ITS ---
STUDY: CT MAXILLOFACIAL SINUSES REASON FOR EXAM: Male, 63 years old. Other chronic sinusitis. Prior resection of the left nasal polyp. RADIATION DOSAGE (If Supplied By Facility): CTDIvol = ( 33.06 ) mGy, DLP = ( 862.77 ) mGycm TECHNIQUE: The patient was scanned in a multi detector CT scanner. High resolution axial imaging was performed without the administration of intravenous contrast material. Sagittal and coronal images were reconstructed. Individualized dose optimization techniques were used for this CT. COMPARISON: None. FINDINGS: There are small submental lymph nodes. FRONTAL SINUSES: Normal aeration, without mucosal inflammatory disease. ETHMOIDAL SINUSES: Minimal mucosal thickening of the ethmoid sinuses. MAXILLARY SINUSES: There is a 1.4 cm x 1.1 cm polyp or mucosal retention cyst along the lateral wall of the inferior aspect of the right maxillary sinus. Minimal mucosal thickening of the left maxillary sinus. There is evidence of prior resection of the superior aspect of the medial wall of the left maxillary sinus. SPHENOIDAL SINUSES: Opacification of the left sphenoid sinus. There is patency of the bilateral maxillary infundibuli with normal uncinate processes, ethmoid bullae, and hiatus semilunaris. Normal bilateral middle turbinates. Normal bilateral inferior turbinates. Normal midline nasal septum. Soft tissue prominence within the posterior nasopharynx with the opacification of the left sphenoid sinus. The visualized osseous structures are normal. The visualized bilateral orbital contents are normal. CT/Sinus/Facial Bone IMPRESSION: Opacification of the left sphenoid sinus with soft tissue prominence in the posterior aspect of the left nasal fossa. Mucosal retention cyst or polyp along the inferior aspect of the right maxillary sinus. Electronically Signed: Arnulfo Zurita MD at 10:06 EDT ,
== END | disposition home or self-care (01) ==
LOC: CT 07:10
PROVIDERS: PCP Nurse Practitioner Family; Referring Provider Otolaryngology; Visit Provider Otolaryngology
DX: J32.8 Other chronic sinusitis (principal)
CPT/HCPCS: 70486

== ENCOUNTER → 2023-07-14 | Outpatient (CLI) | payer OTHER, SELFPAY ==
--- NOTE | 2023-07-02 10:29 | EKG12_ITS ---
Test Reason : PRE-OP Blood Pressure : / mmHG Vent. Rate : 080 BPM Atrial Rate : 080 BPM P-R Int : 150 ms QRS Dur : 090 ms QT Int : 366 ms P-R-T Axes : 012 -12 026 degrees QTc Int : 422 ms Normal sinus rhythm with sinus arrhythmia Normal ECG Confirmed by JAQUELIN ESPINOZA, BOUBACAR ([id number]), manager editorial MALIA BURNS ([id number]) on 07/02/2023 1:52:57 PM Referred By: Armando Rosen Confirmed By:BOUBACAR HAMMER MD
[2023-07-02 11:05] LABS: Hematocrit 43.1 % (40-54); Hemoglobin 14.7 g/dL (13.0-16.5); Mean Corp Hgb Conc 34.1 g/dL (32-36); Mean Corpuscular Hgb 29.6 pg (27.0-32.0); Mean Corpuscular Volume 86.7 fL (80-94); Mean Platelet Vol. 9.8 fl (6.2-12.0); Platelet Count 208 K/mm3 (150-450); RBC Distribution Width CV 13.1 % (11.6-14.6); RBC Distribution Width SD 40.9 fl (35.1-43.9); Red Blood Count 4.97 M/mm3 (4.6-6.2); White Blood Count 5.8 K/mm3 (4.4-11.0)
[2023-07-02 11:30] LABS: Anion Gap 5 (5-15); BUN 14 mg/dL (7-18); BUN/Creat Ratio 8.2 RATIO (10-20); Calcium,Total 8.8 mg/dL (8.5-10.1); Chloride 110 mmol/L (98-107); EST Glomerular Filtration Rate 44 mL/min (>60); Est Glom Filt Rate - Afr Amer 53 mL/min (>60); Glucose 142 mg/dL (74-106); Potassium 3.9 mmol/L (3.5-5.1); Sodium Level 142 mmol/L (136-145)
[2023-07-02 11:37] LABS: Thyroid Stim Hormone (TSH) 1.96 uIU/mL (0.358-3.74)
[2023-07-14 07:19] VITALS: BP 184/103; PULSE 76; RESP 16; TEMP 36.7; O2SAT 97; BMI 28.5
[2023-07-14] MEDS: Lactated Ringers 1,000 ML 15 ML IV (07:24)
--- NOTE | 2023-10-13 07:34 | PCM.DC ---
Discharge Instructions Diet Discharge Diet: No restrictions Activity Discharge Activity: Return to Normal Activity Dressing / Incision Call your doctor if your incision/area has: Sudden Increased Bleeding Additional Dressing/Incision Instructions:: saline to both nostrils 5-6 times/day. sleep with head of bed elevated. Follow Up Care Please Follow Up With: Rogelio Rosen MD When: 1 week Test Results: Test results from this visit will be discussed in further detail at your follow-up appointment, if applicable. Discharge Plan Admission Attending Provider: Rogelio Rosen Primary Care Provider: Pablo Mansfield NP Instructions Print Language: Mongolian Discharge Orders/Prescriptions Prescriptions: No Action losartan 50 MG tablet 100 mg PO DAILY levothyroxine 75 MCG tablet 75 mcg PO DAILY multivitamin with minerals 1 EACH tablet 1 ea PO DAILY atorvastatin 10 mg tablet 10 mg PO QHS budesonide 32 mcg/actuation aerosol 32 mcg intranasal DAILY PRN (Reason: congestion) olopatadine [Eye Allergy Itch Relief] 0.2 % drops 1 drp EACH EYE DAILY alprazolam [Xanax] 0.5 mg tablet 0.5 mg PO DAILY PRN (Reason: anxiety) amlodipine 5 mg tablet 5 mg PO DAILY metoprolol succinate 25 mg tablet extended release 24 hr 25 mg PO DAILY spironolactone 25 mg tablet 25 mg PO DAILY Other Ambulatory Orders: 12 Lead EKG (Routine) Timeframe: [id number] Location: None Selected Ordered By: Dr. Rogelio Rosen Referrals / Follow Up: Pablo Mansfield NP, MATTRESS INSPECTOR-C [Primary Care Provider] - Disposition Disposition (needs filled in before D/C Order can be placed): Home, Self Care
--- NOTE | 2023-10-13 07:35 | OP.PCM_ITS ---
Problems Associated Problem List Diagnoses (1) Chronic pansinusitis: (2) Sinusitis with nasal polyps: (3) Nasal congestion: Report of Operation Date of Procedure: 10/13/23 Pre-Operative Diagnosis: 1. chronic pansinusitis 2. sinonasal polyposis 3. nasal congestion Post-Operative Diagnosis: 1. chronic pansinusitis 2. sinonasal polyposis 3. nasal congestion Surgery/Procedure Performed:: 1. endoscopic maxillary antrostomy with removal of contents, right and left 2. endoscopic total ethmoidecotmy, right and left 3. endoscopic sphenoidotomy with removal of contents, right and left 4. endoscopic frontal sinus exploration removal of contents, right and left 5. extensive excision of sinonasal polyps, right and left 6. CT image guidance navigation Surgeon: Rogelio Rosen Type of Anesthesia: General Description of Procedure: On the day of the procedure, after appropriate informed consent was obtained, the patient was brought to the operating room and placed in a supine position on the operating room table. The patient was placed under general endotracheal anesthesia by the anesthesiologist. The endotracheal tube was secured.? image guidance navigation was set up on the face and accuracy was confirmed.? the nose was injected with lidocaine/epinephrine and decongested with oxymetazoline- soaked pledgets.? the zero degree endoscope was used to evaluate the nasal cavity.? the superior attachment of the right and left middle turbinate and uncinate processes were injected with lidocaine/epinephrine.? the left nasal cavity was evaluated.? the middle turbinate was medialized. a large amount of polyp tissue was removed from the middle meatus.? a revision maxillary antrostomy and uncinectomy were performed with a back biter and a herminia cut.?? purulent material was evacuated.? a revision ethmoidectomy was performed with a curette and an upgoing blakesley.? this was taken superiorly to the skull base and laterally to the lamina.? a stankewicz maneuver was performed and no laminar defect was noted.? the natural sphenoid os was widened with the microdebrider and contents were evacuated.? a large amount of polyp tissue was removed from the sphenoethmoidal recess.? the frontal recess was explored and contents were evacuated.? hemostasis was achieved with suction cautery; surgicel was placed. the right nasal cavity was evaluated.? the middle turbinate was medialized.? a revision maxillary antrostomy and uncinectomy were performed with a back-biter.? purulent material was evacuated.? a revision total ethmoidectomy was performed with a curette and an upgoing blakesley.? this was taken superiorly to the skull base and laterally to the lamina.? a stankewicz maneuver was performed and no laminar defect was noted.? the natural sphenoid os was widened with the microdebrider and contents were evacuated.? fungus was removed from the sphenoethmoidal recess.? the frontal recess was explored and contents were evacuated.? hemostasis was achieved with suction cautery. a nasogastric tube was inserted orally and contents were evacuated.? the table was rotated 90 degrees toward the anesthesiologist and? was subsequently extubated uneventfully.? he was transferred to the PACU in stable condition.
== END | disposition home or self-care (01) ==
LOC: SDC 10-13 12:30
PROVIDERS: Anesthesiology; PCP Nurse Practitioner Family; Referring Provider Otolaryngology; Visit Provider Otolaryngology
DX: Z01.818 Encounter for other preprocedural examination (principal)
CPT/HCPCS: 36415; 80048; 84443; 85027; 93005; J7120; J2405

== ENCOUNTER → 2023-07-16 | Outpatient (CLI) | payer OTHER, SELFPAY ==
--- NOTE | 2023-07-16 10:55 | RAD_ITS ---
STUDY: X-RAY - ABDOMEN/PELVIS REASON FOR EXAM: Male, 63 years old. Flank pain TECHNIQUE: Two AP supine views of the abdomen and pelvis. COMPARISON: 05/08/2023 FINDINGS: Normal visualized lung bases. Stable calcifications overlying the left kidney. Previously noted calcifications overlying the right kidney are not seen, they could have been removed, past, or be obscured by overlying bowel gas and stool. Retained stool noted in the ascending colon. There is no demonstrated free abdominal air. The visualized liver, spleen and kidneys are grossly normal in size and morphology. Normal soft tissue structures. There are diffuse degenerative changes of the visualized lumbar spine. RAD/Abdomen Single View IMPRESSION: Stable left nephrolithiasis Previously noted calcifications over the right kidney not seen on current study, they may have been treated, passed, or are obscured by overlying bowel gas and stool. Electronically Signed: Markus Pedro MD at 8:34 EDT ,
== END | disposition home or self-care (01) ==
LOC: RAD 10:49
PROVIDERS: PCP Nurse Practitioner Family; Referring Provider Urology; Visit Provider Urology
DX: N20.0 Calculus of kidney (principal)
CPT/HCPCS: 74018

== ENCOUNTER 2023-10-13 05:48 | Day surgery (SDC) | payer OTHER, SELFPAY ==
[2023-10-05 10:33] LABS: Hematocrit 45.9 % (40-54); Hemoglobin 15.3 g/dL (13.0-16.5); Mean Corp Hgb Conc 33.3 g/dL (32-36); Mean Corpuscular Hgb 29.4 pg (27.0-32.0); Mean Corpuscular Volume 88.3 fL (80-94); Mean Platelet Vol. 10.2 fl (6.2-12.0); Platelet Count 213 K/mm3 (150-450); RBC Distribution Width CV 12.9 % (11.6-14.6); RBC Distribution Width SD 41.4 fl (35.1-43.9); White Blood Count 6.9 K/mm3 (4.4-11.0)
[2023-10-05 11:00] LABS: Anion Gap 4 (5-15); BUN 18 mg/dL (7-18); BUN/Creat Ratio 10.5 RATIO (10-20); Calcium,Total 9.3 mg/dL (8.5-10.1); Chloride 113 mmol/L (98-107); Creatinine, Serum 1.71 mg/dL (0.70-1.30); EST Glomerular Filtration Rate 43 mL/min (>60); Est Glom Filt Rate - Afr Amer 52 mL/min (>60); Glucose 120 mg/dL (74-106); Potassium 4.4 mmol/L (3.5-5.1); Sodium Level 143 mmol/L (136-145)
[2023-10-05 11:11] LABS: Thyroid Stim Hormone (TSH) 1.41 uIU/mL (0.358-3.74)
[2023-10-13] VITALS (9 sets, daily range): BP systolic 117–150; BP diastolic 67–96; PULSE 62–82; RESP 12–16; TEMP 36.2–36.8; O2SAT 91–97; BMI 27.9
[2023-10-13] MEDS: Lactated Ringers 1,000 ML 15 ML IV (06:07)
--- NOTE | 2023-10-13 07:00 | PRE.ANES_ITS ---
ASA Classification* ASA Classification ASA Classification: 2 Assessment & Plan Anesthesia* Anesthesia Assessment Anesthesia Assessment: Discussed sedation and/or anesthesia options, risks, benefits, and alternatives with patient/parents/legal guardian/POA. Questions invited. The patient/parents/legal guardian/POA seems to understand and agrees to proceed with anesthesia plan. Reviewed the physical assessment, medical history, allergy history and patient home medications list prior to surgery/procedure/anesthetic and documented any changes. Performed airway and anesthesia risk assessments. Anesthesia Type Anesthesia Type: General (see written pre anesthesia record for full assessment) Anesthesia Focused Assessment* Temperature: 98.2 F Pulse Rate: 80 Blood Pressure: 138/88 Respiratory Rate: 16 Pulse Ox: 95 Airway Assessment Mouth opens: >3 cm Mallampati Score: II Focused Labs Anesthesia Preop lab: CBC WBC 6.9 K/mm3 (4.4-11.0) 10/05/23 10:04 RBC 5.20 M/mm3 (4.6-6.2) 10/05/23 10:04 Hgb 15.3 g/dL (13.0-16.5) 10/05/23 10:04 Hct 45.9 % (40-54) 10/05/23 10:04 Plt Count 213 K/mm3 (150-450) 10/05/23 10:04 CHEMISTRY Potassium 4.4 mmol/L (3.5-5.1) 10/05/23 10:04 Sodium 143 mmol/L (136-145) 10/05/23 10:04 BUN 18 mg/dL (7-18) 10/05/23 10:04 Creatinine 1.71 mg/dL (0.70-1.30) H 10/05/23 10:04 Glucose 120 mg/dL (74-106) H 10/05/23 10:04 TSH 1.41 uIU/mL (0.358-3.74) 10/05/23 10:03 COAG Pre-Assessment Diagnosis/Proposed Procedure Planned Operative Procedure(s): FESS WITH NAVIGATION Anesthesia History Anesthesia History - internal medicine physician: Anesthesia History - internal medicine physician Hx Hospitalization No 09/28/23 13:31 Any Problems With Anesthesia No 09/28/23 13:31 Cholinesterase deficiency No 09/28/23 13:31 You/Your Family Experience No 09/28/23 13:31 fever (hyperthermia) with Relationship Recent Exposure to Contagious No 10/13/23 06:05 Disease Does patient have nerve No 09/28/23 13:31 stimulator Patient instructed to have device shut off --Does patient have Pacemaker No 10/13/23 06:05 or ICD? When Was Last Pacemaker Check QUESTION #4 FULL TEXT: You/Your Family Experience fever (hyperthermia) with Anesthesia Last Oral Intake Last Oral intake: Last Oral Intake NPO since 22:00 10/13/23 06:05 Meds taken in AM with sips of Yes 10/13/23 06:05 water? Meds patient instructed to take am of surgery PONV PONV - internal medicine physician: PONV - internal medicine physician Female No 09/28/23 13:31 HX of Motion Sickness No 09/28/23 13:31 HX of N/V After Surgery No 09/28/23 13:31 Non-Smoker Yes 09/28/23 13:31 Duration of Surgery greater Yes 09/28/23 13:31 than 60 minutes Number of Risk Factors 2 09/28/23 13:31 PONV Score Moderate Risk 09/28/23 13:31 Height & Weight Height & Weight: Anesthesia: Height & Weight Height 6 ft 1 in 10/13/23 06:05 Weight: 96.2 kg 10/13/23 06:05 Body Mass Index (BMI) 27.9 10/13/23 06:05 Respiratory Assessment Respiratory Assessment - internal medicine physician: Respiratory Tract Infection Hx - internal medicine physician Hx Respiratory Tract Infection No 09/28/23 13:31 STOP Sleep Apnea STOP Sleep Apnea - internal medicine physician: STOP Sleep Apnea - internal medicine physician Hx Hypertension Yes: CONTROLLED WITH MEDS/ 09/28/23 13:31 WHITE COAT SYNDROME Hx Sleep Apnea No 09/28/23 13:31 CPAP BIPAP Do you snore loudly (louder Yes 09/28/23 13:31 than talking or can be heard Do you often feel tired/ Yes 09/28/23 13:31 fatigued/ sleepy during daytime? Has anyone observed you stop No 09/28/23 13:31 breathing during sleep? STOP Results Positive 09/28/23 13:31 QUESTION #5 FULL TEXT : Do you snore loudly (louder than talking or can be heard through closed doors)? Tobacco Use History Tobacco Use History - internal medicine physician: Tobacco Use History - internal medicine physician Tobacco Use Smoking Status Never smoker 09/28/23 13:31 Hx Tobacco Use No 09/28/23 13:31 Years Smoking Packs Smoked per Day Smoking Cessation Date was within the last 15 years Hx Smoking Cessation Date Hx Smoking Cessation Counseling Hematologic Medial History Hematologic Hx - internal medicine physician: Hematologic Medical Hx - financial planning analyst Hx of Blood Transfusion No 09/28/23 13:31 Hx of Transfusion in last 3 No 09/28/23 13:31 Months Date of Last Transfusion (if within last 3 months) Ever experience any problems No 09/28/23 13:31 with transfusion(s)? Specify any problems Hx of Preganancy in last 3 N/A 09/28/23 13:31 Months Nurse Filling Out Transfusion DSCHRIBER 09/28/23 13:31 & Questions: Date: 09/28/23 09/28/23 13:31 Time: 13:33 09/28/23 13:31 Patient unable to answer at this time (ie. confused, unrespo /Reproduction History /Reproductive History - internal medicine physician: /Reproductive Hx- internal medicine physician Hx Now Gestational Age (in weeks): EDC: Hx Hx Para Hx Section SAB No 09/28/23 13:31 Active Medications Active Medications: Current Medications Generic Name Dose Route Start Last Admin Trade Name Freq PRN Reason Stop Dose Admin Clindamycin Phosphate 900 mg in 50 mls @ 75 mls/hr 10/13/23 07:30 Cleocin IV 10/13/23 08:09 PREOP ONE Lactated Ringer's 1,000 mls @ 15 mls/hr 10/13/23 06:00 10/13/23 06:07 IV 15 mls/hr .Q48H RAFAEL Administration PFSH Medical History Syncope Wears glasses Cancer Anxiety Thyroid disease Arthritis History of renal disease High cholesterol Non-smoker Hypertension History of kidney stones Home Medications ?Medication ?Instructions ?Recorded ?Last Taken ?Type levothyroxine 75 mcg tablet 75 mcg PO DAILY 03/08/20 10/13/23 History losartan 50 mg tablet 100 mg PO DAILY 03/08/20 10/13/23 04:15 History multivitamin with minerals 1 ea PO DAILY 03/08/20 07/13/23 History alprazolam 0.5 mg tablet (Xanax) 0.5 mg PO DAILY PRN anxiety 05/05/23 10/13/23 05:00 History atorvastatin 10 mg tablet 10 mg PO QHS 05/05/23 07/13/23 History budesonide 32 mcg/actuation nasal 32 mcg intranasal DAILY PRN 05/05/23 07/13/23 History spray,aerosol congestion olopatadine 0.2 % eye drops (Eye 1 drp EACH EYE DAILY 05/05/23 07/14/23 History Allergy Itch Relief) amlodipine 5 mg tablet 5 mg PO DAILY 09/28/23 10/13/23 04:15 History metoprolol succinate 25 mg 25 mg PO DAILY 09/28/23 10/13/23 04:15 History tablet,extended release 24 hr spironolactone 25 mg tablet 25 mg PO DAILY 09/28/23 Unknown History Allergy/AdvReac Type Severity Reaction Status Date / Time No Known Allergies Allergy Verified 10/13/23 06:03 Surgical History History of wisdom tooth extraction History of sinus surgery History of colonoscopy Social History Smoking Status: Never smoker Review of Systems (Anesthesia) ROS Narrative System reviewed and no additional complaints, except as documented.
--- NOTE | 2023-10-13 07:30 | NASAL_PTH ---
PATIENT: MICHELLE VEGA LOC: [facility] [place] U#:[id number] AGE/SX: 63/M ROOM: RE10/13/[address]: Dr. Rogelio Rosen MD : 1960 BED: DIS: 10/13/2023 SPEC #: [id number] RECD: 10/13/23 09:33 STATUS: JANELL REVern #: [id number] KAYDEN: 10/13/23 07:[address]: Rogelio Rosen DEPT: SURGICAL PATHOLOGY RECD BY: Marisol Pepper ENTERED: 10/13/23 10:31 SP TYPE: NASAL SPEC OTHR DR: MD Pablo Sarmiento, SALESPERSON SURGICAL APPLIANCES-C Tissues: A - Ethmoid sinus, NOS B - Ethmoid sinus, NOS Procedures: Decalcification bone/plaque Surgery Specimen Level IV HEADER OPERATION: Functional endoscopic sinus surgery, navigation PRE-OP DIAGNOSIS: Chronic pansinusitis, other polyp of sinus TISSUE SUBMITTED: A- Left sinus contents, B- right sinus contents MICROSCOPIC DIAGNOSIS A. 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 Fragment of respiratory mucosa with chronic inflammation. B. Right sinus contents: Scant fragment of mucoid tissue. See comment. / 10/16/2023 COMMENT B. Respiratory mucosal tissue is not identified in the specimen. MICROSCOPIC DESCRIPTION Slides are reviewed. GROSS DESCRIPTION A. Received in fixative is one container labeled with the patient's name and designated Left sinus contents. The specimen consists of multiple fragments of ponce soft tissue mixed with possible fragments of bone measuring in aggregate 3.0 x 2.5 x 0.3cm. The entire specimen is submitted in one cassette after decalcification. B. Received in fixative is one container labeled with the patient's name and designated Right sinus contents. The specimen consists of a minute fragment of hemorrhagic tissue submitted for cellblock preparation. / 10/13/2023 TC:1 CPT:41994s3,11322
[2023-10-13] MEDS: Clindamycin 900 MG/50 ML BAG 75 MG IV (07:36)
[2023-10-13] MEDS: Oxymetazoline 0.05% 1 SPRAY SPRAY.BTL 15 SPRAY (08:04)
--- NOTE | 2023-10-13 08:45 | PCM.POST.ANE ---
Anesthesia: Postop Eval I Current Vital Signs Temperature: 97.2 F Pulse Rate: 81 Blood Pressure: 147/67 Respiratory Rate: 12 Pulse Ox: 94 Oxygen Delivery Method: Room Air Assessment Airway patent: Yes Spontaneous unlabored respirations: Yes Mental status: Awake and Calm nausea: No Vomiting: No Anesthesia Complication: No Fluid Hydration Crystalloid volume administer (ml): 1,100 Total IV fluid infused: 1,100 Progress Note Anesthesia document: Postop Eval 1 completed: Yes
--- NOTE | 2023-10-13 09:12 | POSTOPAN2_ITS ---
Anesthesia Postop Eval I Sum Postop Eval Completion status Anesthesia document: Postop Eval 1 completed: Yes Anesthesia Postop Eval I Summary Anesthesia Postop Eval I Summary: Anesthesia Postop Eval I: Assessment Summary Airway patent Yes 10/13/23 08:47 [email or web address] [email or web address] Spontaneous unlabored Yes 10/13/23 08:47 [email or web address] [email or web address] respirations Mental status Awake,Calm 10/13/23 08:47 [email or web address] [email or web address] nausea No 10/13/23 08:47 [email or web address] [email or web address] Vomiting No 10/13/23 08:47 [email or web address] [email or web address] Anesthesia Postop Eval I: Fluid Summary Crystalloid volume administer 1,100 10/13/23 08:47 [email or web address] [email or web address] (ml) Colloids volume administered ( ml) Blood Product volume administered (ml) Total IV fluid infused 1,100 10/13/23 08:47 PROOF [email or web address] Anesthesia Postop Eval I: Summary Notes Anesthesia Complication No 10/13/23 08:47 [email or web address] [email or web address] Anesthesia Complication Comment: Post-operative progress note Anesthesia: Postop Eval II Evaluation Mental status: Awake Pain Level: 0 nausea: No Vomiting: No
--- NOTE | 2023-10-13 09:12 | PCM.POSTANE2 ---
Anesthesia Postop Eval I Sum Postop Eval Completion status Anesthesia document: Postop Eval 1 completed: Yes Anesthesia Postop Eval I Summary Anesthesia Postop Eval I Summary: Anesthesia Postop Eval I: Assessment Summary Airway patent Yes 10/13/23 08:47 [email or web address] Spontaneous unlabored Yes 10/13/23 08:47 [email or web address] [email or web address] respirations Mental status Awake,Calm 10/13/23 08:47 [email or web address] [email or web address] nausea No 10/13/23 08:47 [email or web address] [email or web address] Vomiting No 10/13/23 08:47 [email or web address] Anesthesia Postop Eval I: Fluid Summary Crystalloid volume administer 1,100 10/13/23 08:47 [email or web address] [email or web address] (ml) Colloids volume administered ( ml) Blood Product volume administered (ml) Total IV fluid infused 1,100 10/13/23 08:47 [email or web address] [email or web address] Anesthesia Postop Eval I: Summary Notes Anesthesia Complication No 10/13/23 08:47 [email or web address] [email or web address] Anesthesia Complication Comment: Post-operative progress note Anesthesia: Postop Eval II Evaluation Mental status: Awake Pain Level: 0 nausea: No Vomiting: No
== END 2023-10-13 23:59 | disposition home or self-care (01) ==
LOC: SDC 12:27
PROVIDERS: Anesthesiology; PCP Nurse Practitioner Family; Referring Provider Otolaryngology; Visit Provider Otolaryngology
PROC: (CPT 31267; principal; 2023-10-13 07:00)
DX: J32.4 Chronic pansinusitis (principal); J33.8 Other polyp of sinus; Z79.899 Other long term (current) drug therapy; E78.00 Pure hypercholesterolemia, unspecified; I10 Essential (primary) hypertension; E07.9 Disorder of thyroid, unspecified
CPT/HCPCS: 31267; 31288; 36415; 80048; 84443; 85027; 88305; 88311; J7120; J2405

== ENCOUNTER → 2024-07-18 | Outpatient (CLI) | payer OTHER, SELFPAY ==
--- NOTE | 2024-07-18 08:56 | RAD_ITS ---
PROCEDURE: ABDOMEN SINGLE VIEW 07/18/2024 REASON FOR EXAM: CALCULUS OF KIDNEY, HX OF KIDNEY STONES TECHNIQUE: Single view abdomen. COMPARISON: None available at this time. FINDINGS: Bowel gas: Bowel gas pattern is remarkable for mild constipation. No evidence of bowel obstruction. Calcifications: There is a 9.8 mm calculus in the midportion of the left kidney. Tiny calculi are also seen in the lower pole calyx of the left kidney. The largest measuring 4.9 mm. Calcification seen in the left hemipelvis most likely representing calcified phleboliths. Bones: There are degenerative changes of the spine. Other: Degenerative changes of both hip joints. RAD/Abdomen Single View IMPRESSION: Left intrarenal calculi as described. Reading Location: [place] [id number]
== END | disposition home or self-care (01) ==
PROVIDERS: PCP Nurse Practitioner Family; Referring Provider Urology; Visit Provider Urology
DX: N20.0 Calculus of kidney (principal)
CPT/HCPCS: 74018

== ENCOUNTER 2024-08-10 12:00 | Day surgery (SDC) | payer OTHER, SELFPAY ==
[2024-08-10] VITALS (10 sets, daily range): BP systolic 138–157; BP diastolic 87–97; PULSE 79–94; RESP 14–18; TEMP 36.1–36.5; O2SAT 94–98; BMI 28.3
[2024-08-10] MEDS: Lactated Ringers 1,000 ML 15 ML IV (12:15)
--- NOTE | 2024-08-10 13:11 | PCM.PRE.AN2 ---
ASA Classification* ASA Classification ASA Classification: 2 Assessment & Plan Anesthesia* Anesthesia Assessment Anesthesia Assessment: Discussed sedation and/or anesthesia options, risks, benefits, and alternatives with patient/parents/legal guardian/POA. Questions invited. The patient/parents/legal guardian/POA seems to understand and agrees to proceed with anesthesia plan. Reviewed the physical assessment, medical history, allergy history and patient home medications list prior to surgery/procedure/anesthetic and documented any changes. Performed airway and anesthesia risk assessments. Anesthesia Type Anesthesia Type: General History Source History Obtained from:: Patient and Chart Anesthesia Focused Assessment* Temperature: 97.6 F Pulse Rate: 80 Blood Pressure: 139/97 Respiratory Rate: 17 Pulse Ox: 97 Oxygen Delivery Method: Room Air Airway Assessment Mouth opens: >3 cm Mallampati Score: II Teeth Condition: Intact Neck Range of motion (ROM): Full ROM Focused Labs Anesthesia Preop lab: CBC WBC 6.9 K/mm3 (4.4-11.0) 10/05/23 10:10/05/23 RBC 5.20 M/mm3 (4.6-6.2) 10/05/23 10:10/05/23 Hgb 15.3 g/dL (13.0-16.5) 10/05/23 10:10/05/23 Hct 45.9 % (40-54) 10/05/23 10:10/05/23 Plt Count 213 K/mm3 (150-450) 10/05/23 10:10/05/23 CHEMISTRY Potassium 4.4 mmol/L (3.5-5.1) 10/05/23 10:10/05/23 Sodium 143 mmol/L (136-145) 10/05/23 10:10/05/23 BUN 18 mg/dL (7-18) 10/05/23 10:10/05/23 Creatinine 1.71 mg/dL (0.70-1.30) H 10/05/23 10:10/05/23 Glucose 120 mg/dL (74-106) H 10/05/23 10:10/05/23 TSH 1.41 uIU/mL (0.358-3.74) 10/05/23 10:10/05/23 COAG Pre-Assessment Diagnosis/Proposed Procedure Planned Operative Procedure(s): (L) ESWL,Cystocopy Insertion Stent Anesthesia History 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 When Was Last Pacemaker Check QUESTION #4 FULL TEXT: You/Your Family Experience fever (hyperthermia) with Anesthesia Last Oral Intake Last Oral intake: Last Oral Intake NPO since 00:00 08/10/24 12:38 Meds taken in AM with sips of No 08/10/24 12:38 water? 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 Female No 07/27/24 13:11 HX of Motion Sickness No 07/27/24 13:11 HX of N/V After Surgery No 07/27/24 13:11 Non-Smoker Yes 07/27/24 13:11 Duration of Surgery greater No 07/27/24 13:11 than 60 minutes Number of Risk Factors 1 07/27/24 13:11 PONV Score Low Risk 07/27/24 13:11 Height & Weight Height & Weight: Anesthesia: Height & Weight Height 6 ft 1 in 08/10/24 12:38 Weight: 97.4 kg 08/10/24 12:38 Body Mass Index (BMI) 28.3 08/10/24 12:38 Respiratory Assessment Respiratory Assessment - paint striping machine operator: Respiratory Tract Infection Hx - paint striping machine operator Hx Respiratory Tract Infection No 07/27/24 13:11 STOP Sleep Apnea STOP Sleep Apnea - paint striping machine operator: STOP Sleep Apnea - paint striping machine operator Hx Hypertension Yes 07/27/24 13:11 Hx Sleep Apnea No 07/27/24 13:11 CPAP BIPAP Do you snore loudly (louder No 07/27/24 13:11 than talking or can be heard Do you often feel tired/ No 07/27/24 13:11 fatigued/ sleepy during daytime? Has anyone observed you stop No 07/27/24 13:11 breathing during sleep? STOP Results Negative 07/27/24 13:11 QUESTION #5 FULL TEXT : Do you snore loudly (louder than talking or can be heard through closed doors)? 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 Specify any problems Hx of Preganancy in last 3 N/A 07/27/24 13:11 Months Nurse Filling Out Transfusion [facility] 07/27/24 13:11 & Questions: Date: 07/27/24 07/27/24 13:11 Time: 13:18 07/27/24 13:11 Patient unable to answer at this time (ie. 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: /Reproductive Hx- paint striping machine operator Hx Now No 07/27/24 13:11 Gestational Age (in weeks): EDC: Hx Hx Para Hx Section SAB No 09/28/23 13:31 Active Medications Active Medications: Current Medications Generic Name Dose Route Start Last Admin Trade Name Freq PRN Reason Stop Dose Admin Cefazolin Sodium 2 gm/ Sodium 110 mls @ 150 mls/hr 08/10/24 14:20 Chloride IV 08/10/24 15:03 INTRAOP ONE Lactated Ringer's 1,000 mls @ 15 mls/hr 08/10/24 12:15 08/10/24 12:15 IV 15 mls/hr .Q48H RAFAEL Administration PFSH Medical History (Updated 07/27/24 @ 13:17 by Alferda Martinez) Prostate disease Restless legs Syncope Wears glasses Cancer Anxiety Thyroid disease Arthritis History of renal disease High cholesterol Non-smoker Hypertension History of kidney stones Home Medications ?Medication ?Instructions ?Recorded ?Last Taken ?Type levothyroxine 75 mcg tablet 75 mcg PO DAILY 03/08/20 08/10/24 History losartan 50 mg tablet 100 mg PO DAILY 03/08/20 08/10/24 History multivitamin with minerals 1 ea PO DAILY 03/08/20 08/09/24 History atorvastatin 10 mg tablet 10 mg PO QHS 05/05/23 08/09/24 History budesonide 32 mcg/actuation nasal 32 mcg intranasal DAILY PRN 05/05/23 08/09/24 History spray,aerosol congestion olopatadine 0.2 % eye drops (Eye 1 drp EACH EYE DAILY 05/05/23 08/09/24 History Allergy Itch Relief) amlodipine 5 mg tablet 5 mg PO DAILY 09/28/23 08/10/24 History cephalexin 500 mg capsule 500 mg PO TID 08/10/24 08/10/24 History Allergy/AdvReac Type Severity Reaction Status Date / Time No Known Allergies Allergy Verified 08/10/24 12:21 Surgical History (Updated 07/27/24 @ 13:12 by Alfreda Martinez) History of lithotripsy History of wisdom tooth extraction History of sinus surgery History of colonoscopy Social History Smoking Status: Never smoker Review of Systems (Anesthesia) ROS Narrative System reviewed and no additional complaints, except as documented. Physical Exam Const alert, oriented x3 and average body habitus Resp normal respiratory effort, normal air movement and clear to auscultation bilaterally Cardio regular rate, regular rhythm, no murmurs and diaphoretic
[2024-08-10] MEDS: Cefazolin 2 GM in 0.9% Normal Saline (100mL Bag) 100 ML IV (13:55)
--- NOTE | 2024-08-10 14:40 | HP.PCM_ITS ---
HPI - General General Date of Service: 08/10/24 Chief Complaint: Left kidney stones HPI Narrative MICHELLE VEGA, is a 64 M who presents for shockwave treatment of left kidney stones [facility] Medical History (Updated 08/10/24 @ 14:[address] Markos Villasenor MD) Prostate disease Restless legs Syncope Wears glasses Cancer Anxiety Thyroid disease Arthritis History of renal disease High cholesterol Non-smoker Hypertension History of kidney stones Home Medications ?Medication ?Instructions ?Recorded ?Last Taken ?Type levothyroxine 75 mcg tablet 75 mcg PO DAILY 03/08/20 0 08/10/24 History losartan 50 mg tablet 100 mg PO DAILY 03/08/2010/28 History multivitamin with minerals 1 ea PO DAILY 03/08/2009/28 History atorvastatin 10 mg tablet 10 mg PO QHS 05/05/23 History budesonide 32 mcg/actuation nasal 32 mcg intranasal DA VALERY PRN 05/05/23 08/09/24 History spray,aerosol congestion olopatadine 0.2 % eye drops (Eye 1 drp EACH EYE DAILY 05/05/23 08/09/24 History Allergy Itch Relief) amlodipine 5 mg tablet 5 mg PO DAILY 09/28/2308/10 History acetaminophen 500 mg capsule 500 mg PO Q6H PRN pain #2 0 caps 08/10/24 Unknown Rx cephalexin 500 mg capsule 500 mg PO TID 08/10/2408/10 History ibuprofen 600 mg tablet 600 mg PO Q6H PRN pain #20 t abs 08/10/24 Unknown Rx oxycodone 5 mg tablet 5 mg PO Q6H PRN pain 7 days #14 08/10/24 Unknown Rx tabs Allergy/AdvReac Type Severity Reaction Status Date / Time No Known Allergies Allergy Verified 08/10/24 12:21 Surgical History (Updated 07/27/24 @ 13:12 by Alfreda Martinez) History of lithotripsy History of wisdom tooth extraction History of sinus surgery History of colonoscopy Social History Smoking Status: Never smoker Vital Signs Vital Signs Vital Signs: 08/10/24 12:38 08/10/24 12:38 08/10/24 13:15 Temperature 97.6 F L 97.6 F L Temperature Source Temporal Pulse Rate 80 80 Respiratory Rate 17 17 Respiratory Pattern Normal Blood Pressure 139/97 H 139/97 H Blood Pressure Mean 111 Blood Pressure Source Monitor Blood Pressure Position Semi-Fowlers Blood Pressure Location Left Arm Pulse Ox 97 97 Oxygen Delivery Method Room Air Room Air Weight Weight: 97.4 kg Body Mass Index (BMI) 28.3
--- NOTE | 2024-08-10 14:40 | PCM.DC ---
Discharge Instructions Diet Discharge Diet: No restrictions DC O2, CPAP, BIPAP needs Home O2 Discharge instructions: No Dressing / Incision Discharge Activity: Return to Normal Activity and May Not Drive (while taking narcotic pain medications.) Dressing / Incision Call your doctor if you observe: Fever of 101 or Higher Follow Up Care Please Follow Up With: Markos Villasenor MD When: Call [phone] for an appointment Test Results: Test results from this visit will be discussed in further detail at your follow-up appointment, if applicable. Discharge Plan Admission Primary Reason for Your Visit: Left ESWL Attending Provider: Markos Villasenor Primary Care Provider: Pablo Mansfield NP Instructions Print Language: Lithuanian Discharge Orders/Prescriptions Prescriptions: New ibuprofen 600 mg tablet 600 mg PO Q6H PRN (Reason: pain) Qty: 20 0RF oxycodone 5 mg tablet 5 mg PO Q6H PRN (Reason: pain) 7 Days Qty: 14 0RF acetaminophen 500 mg capsule 500 mg PO Q6H PRN (Reason: pain) Qty: 20 0RF No Action losartan 50 MG tablet 100 mg PO DAILY levothyroxine 75 MCG tablet 75 mcg PO DAILY multivitamin with minerals 1 EACH tablet 1 ea PO DAILY atorvastatin 10 mg tablet 10 mg PO QHS budesonide 32 mcg/actuation aerosol 32 mcg intranasal DAILY PRN (Reason: congestion) olopatadine [Eye Allergy Itch Relief] 0.2 % drops 1 drp EACH EYE DAILY amlodipine 5 mg tablet 5 mg PO DAILY cephalexin 500 mg capsule 500 mg PO TID Referrals / Follow Up: Markos Villasenor MD [Med Staff - Active Staff] - Pablo Mansfield NP, MA[employer] [Primary Care Provider] - Disposition Disposition (needs filled in before D/C Order can be placed): Home, Self Care
--- NOTE | 2024-08-10 14:41 | PCM.OPRPT ---
Operative Report (Standard) Operative Information Date of Procedure: 08/10/24 Pre-Operative Diagnosis: Multiple large left kidney stones Post-Operative Diagnosis: The same Surgery/Procedure Performed: Left extracorporeal shockwave lithotripsy engineering equipment operator: No Type of Anesthesia: General RN Documented Start/Stop Times: Operation Date: 08/10/24 14:20 Case Time Into Pre-Op 08/10/24 12:12 Out of Pre-Op 08/10/24 13:45 Anesthesia Start 08/10/24 13:49 Into Room 08/10/24 13:49 Procedure Start 08/10/24 14:02 Procedure End 08/10/24 14:38 Procedure Start Time: 14:02 Procedure Stop Time: 14:41 Select all DRAINS/GRAFTS/IMPLANTS that apply: None Estimated Blood Loss: none Specimen collected: No Description of surgery: Patient presents to the hospital for treatment of a kidney stone with shockwave lithotripsy. In the preoperative area and x-ray was done to confirm the location of the stone. The x-ray was reviewed and the stone location was reviewed. In the preoperative setting I spoke with the patient regarding the treatment of the stone how the treatment would be conducted and the expectations after surgery. The patient understands there is a risk of bleeding and infection. Also discussed the very rare risk of hematoma or damage to the kidney. We also discussed the risk that the shockwave machine will fail to break the stone adequately and that the patient may need other surgical procedures. I also discussed the possibility that the patient may need a stent after the procedure. After reviewing the procedure with the patient, the patient is signed the consent form all the patient's questions were addressed and was taken back to the operating room for treatment of a kidney stone. Patient was taken back to the operating room, the patient was identified by the nursing staff, I identified the side of the treatment and the patient side of treatment had been marked by my initials. The patient underwent general anesthetic and was placed supine on the lithotripter table. I then used fluoroscopy to identify the stone on the Left side in the kidney. I then positioned the patient under the lithotripter and I used triangulation technique to identify the location of the stone and then I made sure that the stone was engaged in the F2 focal point of F2 Donier lithoprior machine. Once the patient was positioned appropriately and the stone was identified and placed in the F2 focal point of the lithotripter machine I then proceeded with shockwave lithotripsy. In the beginning the shockwave was delivered at a rate of 90 shocks per minute, anesthesia monitored the EKG for any ectopy. The power was slowly increased to 5 kV and subsequently at the 7 kV. I then proceeded with the treatment with shock wave therapy and around during the treatment to make sure the stone stayed in the F2 focal point during the entire treatment and after 3000 shockwaves were delivered to the stone under fluoroscopic guidance the treatment was completed. The patient was given instructions to call the office to make an a follow-up appointment with an x-ray to evaluate the success of the treatment, patient understands that its possible the stones may need another procedure. At this point the patient's anesthetic was reversed patient was extubated and taken back to the PACU in stable condition. Surgical Findings: Stones in the left kidney broke up really well Complications Complications: No
--- NOTE | 2024-08-10 14:51 | PCM.POST.ANE ---
Anesthesia: Postop Eval I Current Vital Signs Temperature: 97 F Pulse Rate: 93 Blood Pressure: 157/92 Respiratory Rate: 14 Pulse Ox: 97 Oxygen Delivery Method: Room Air Assessment Airway patent: Yes Spontaneous unlabored respirations: Yes nausea: No Vomiting: No Anesthesia Complication: No Fluid Hydration Crystalloid volume administer (ml): 600 Total IV fluid infused: 600 Progress Note Anesthesia document: Postop Eval 1 completed: Yes
[2024-08-10] MEDS: Ketorolac 15 MG/ML Vial IV (15:12)
--- NOTE | 2024-08-10 15:19 | POSTOPAN2_ITS ---
Anesthesia Postop Eval I Sum Postop Eval Completion status Anesthesia document: Postop Eval 1 completed: Yes Anesthesia Postop Eval I Summary Anesthesia Postop Eval I Summary: Anesthesia Postop Eval I: Assessment Summary Airway patent Yes 08/10/24 14:51 [email or web address] [email or web address] Spontaneous unlabored Yes 08/10/24 14:51 BOAT [email or web address] respirations Mental status nausea No 08/10/24 14:51 BOAT [email or web address] Vomiting No 08/10/24 14:51 BOAT [email or web address] Anesthesia Postop Eval I: Fluid Summary Crystalloid volume administer 600 08/10/24 14:51 BOAT [email or web address] (ml) Colloids volume administered ( ml) Blood Product volume administered (ml) Total IV fluid infused 600 08/10/24 14:51 BOAT [email or web address].HBARR Anesthesia Postop Eval I: Summary Notes Anesthesia Complication No 08/10/24 14:51 BOAT [email or web address].HBARR Anesthesia Complication Comment: Post-operative progress note Anesthesia: Postop Eval II Evaluation Mental status: Awake Pain Level: 0 nausea: No Vomiting: No Complications Anesthesia Complication: No
--- NOTE | 2024-08-10 15:19 | PCM.POSTANE2 ---
Anesthesia Postop Eval I Sum Postop Eval Completion status Anesthesia document: Postop Eval 1 completed: Yes Anesthesia Postop Eval I Summary Anesthesia Postop Eval I Summary: Anesthesia Postop Eval I: Assessment Summary Airway patent Yes 08/10/24 14:51 HAND BOX [email or web address].[email or web address] Spontaneous unlabored Yes 08/10/24 14:51 HAND BOX [email or web address].[email or web address] respirations Mental status nausea No 08/10/24 14:51 HAND BOX FOLDER.HBARR Vomiting No 08/10/24 14:51 HAND BOX [email or web address].[email or web address] Anesthesia Postop Eval I: Fluid Summary Crystalloid volume administer 600 08/10/24 14:51 HAND BOX [email or web address].HBARR (ml) Colloids volume administered ( ml) Blood Product volume administered (ml) Total IV fluid infused 600 08/10/24 14:51 HAND BOX [email or web address].HBARR Anesthesia Postop Eval I: Summary Notes Anesthesia Complication No 08/10/24 14:51 HAND BOX [email or web address].HBARR Anesthesia Complication Comment: Post-operative progress note Anesthesia: Postop Eval II Evaluation Mental status: Awake Pain Level: 0 nausea: No Vomiting: No Complications Anesthesia Complication: No
== END 2024-08-10 16:30 | disposition home or self-care (01) ==
LOC: SDC 12:02 → AC 12:03
PROVIDERS: PCP Nurse Practitioner Family; Referring Provider Urology; Visit Provider Urology
PROC: (CPT 50590; principal; 2024-08-10 14:10)
DX: N20.0 Calculus of kidney (principal); E78.00 Pure hypercholesterolemia, unspecified; I10 Essential (primary) hypertension; Z79.890 Hormone replacement therapy; Z79.899 Other long term (current) drug therapy; E07.9 Disorder of thyroid, unspecified
CPT/HCPCS: 50590; 00873; J2405

== ENCOUNTER → 2024-09-20 | Outpatient (CLI) | payer OTHER, SELFPAY ==
--- NOTE | 2024-09-20 09:08 | RAD_ITS ---
PROCEDURE: ABDOMEN SINGLE VIEW 09/20/2024 REASON FOR EXAM: CALCULUS OF KIDNEY Left nephrolithiasis. TECHNIQUE: ABDOMEN SINGLE VIEW COMPARISON: July 18 FINDINGS: Bowel gas: Unremarkable Calcifications: At least 6 calculi project over the left kidney upper and lower poles. The stones are on the order of 4-5 mm in size. Bones: No aggressive bone lesions. Other: RAD/Abdomen Single View IMPRESSION: Nephrolithiasis-unchanged in location. Phleboliths are seen in the pelvis. Reading Location: [facility]
== END | disposition home or self-care (01) ==
LOC: RAD 08:56
PROVIDERS: PCP Nurse Practitioner Family; Referring Provider Urology; Visit Provider Urology
DX: N20.0 Calculus of kidney (principal)
CPT/HCPCS: 74018